=== PATIENT | male | born 2000 | race Caucasian/White ===

== ENCOUNTER 2025-06-21 20:09 | Emergency (ER) | payer OTHER, SELFPAY ==
--- NOTE | ~2025-06-21 | XR_ITS ---
CLINICAL HISTORY: pain after snapping sound while running 3 view right ankle Comparison: None provided Findings: Small nonspecific curvilinear density identified along the medial margin of the lateral malleolus on the oblique image. Ankle mortise intact. Small to moderate posterior calcaneal enthesophyte at the site of the Achilles tendon insertion. Small plantar calcaneal spur. No significant arthritic change or erosions. Possible right ankle effusion. Evaluation is limited on the lateral image by suboptimal patient positioning. No radiopaque foreign body. IMPRESSION: 1. Small curvilinear density identified along the medial margin of the lateral malleolus of the right ankle on the oblique image. This may represent a projectional finding or a subtle fracture. Recommend clinical correlation with any focal point tenderness at this site for further evaluation. 2. Probable right ankle effusion. This document has been electronically signed by: Scar Devlin MD on 06/21/2025 21:22:58
[2025-06-21 20:21] VITALS: BP 152/82; PULSE 103; RESP 18; TEMP 36.7; O2SAT 97; BMI 31.6
--- OUTSIDE RECORDS SUMMARY | 2025-06-21 22:30 | XMS_ITS | Clinical Summary ---
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 Name Role Phone Unavailable Primary Care Provider Unavailabl e Immunizations Immunization Administration Dates Next Due DTaP 5 02/24/2002, 0,1998,07/04,1998 HPV Vaccine 9 Valent 04/02/2015 HPV, Quadrivalent 11/09/2013,09/20/2013 Hep A, ped/adol 07/23/2016,04/02/2015 Hep B, ped/adol 1998,1998,1998 Hib (PRP-T) 07/23/1999, 9,1998,04/18 IPV 02/24/2002 Influenza, injectable, MDCK, preservative free, quadrivalent 07/23/2016 MMR 02/24/2002,04/04/1999 Meningococcal Conj (Menactra) MCV4P 04/02/2015,0 10/01/2009 OPV 04/04/1999,1998,1998 Tdap 10/01/2009 Varicella 10/01/2009,04/04/1999 Family History Relation Name Status Comments Brother Alive Brother: Alive and well Father Alive Father: Alive a nd well Maternal Grandfather Materna l grandfather: Cancer -lung, ETOH abuse, Maternal Grandmother Alive Materna l aunt: Anxiety, agraphobia Mother Mother: Depress ion, elevated cholesteral, Hyperlipidemia Other , Family histor y of Alcoholism, No family history of *Sudden /VA under 55, No family history of *Heart Disease, No family history of *Dental caries, No family history of *CVA/Stroke Paternal Grandfather Paterna l grandfather: , Cancer -colon Sister Alive Sister: Alive a nd well Social History Tobacco Use Types Packs/Day Years Used Date Smoking Tobacco: Never Comments:Never smoker Sex and Gender Information Value Date Recorded Sex Assigned at Not on file Legal Sex Male 4:52 PM EDT Gender Identity Not on file Sexual Orientation Not on file Last Filed Vital Signs Vital Sign Reading Time Taken Comments Blood Pressure 121/80 07/23/2016 12:00 AM EST Pulse 81 07/23/2016 12:00 AM EST Temperature 36.1 C (96.9 F) 12/06/2013 12:00 AM EDT Respiratory Rate - - Oxygen Saturation - - Inhaled Oxygen Concentration - - Weight 83 kg (183 lb) 07/23/2016 12:00 AM EST Height 175.3 cm (5' 9 ) 04/02/2015 12:00 AM EDT Body Mass Index - - Plan of Treatment Health Maintenance Due Date Last Done Comments DTaP,Tdap,and Td Vaccines (7 - Td or Tdap) 10/02/2019 10/01/2009, 02/24/2002, 09/19/1999, Additional history exists Influenza Vaccines (#1) 2025 07/23/2016 COVID-19 Vaccine ( season) 2025 Hepatitis B Vaccines Completed 1998, 1998, 1998 HIB Vaccines Completed 07/23/1999, 08/20, 1998, Additional history exists IPV Vaccines Completed 02/24/2002, 03/19, 1998, Additional history exists MMR Vaccines Completed 02/24/2002, 04/04/1999 Varicella Vaccines Completed 10/01/2009, 04/04/1999 HPV Vaccines Completed 04/02/2015, 10/18, 09/20/2013 Meningococcal Vaccine Completed 04/02/2015, 010 Hepatitis A Vaccines Completed 07/23/2016, 04/02/20 15 Men B Vaccine Aged Out No longer celia andrews based on patient's age to complete this topic Pneumococcal Vaccine Aged Out No long er eligible based on patient's age to complete this topic
--- OUTSIDE RECORDS SUMMARY | 2025-06-21 22:30 | XMS_ITS | Encounter Summary ---
Author Organization [facility] Address [address] [place] [id number] Phone Care Team Providers Care Laborer Road Name Role Phone Bruna Dean MD Primary Care Provider [phone] Encounter Details Date Type Department Care Team (Late st Contact Info) Description 03/04/2017 Conversion Encounter [facility] - [address] [id number] Social History Tobacco Use Types Packs/Day Years Used Date Smoking Tobacco: Never Comments:Never smoker Sex and Gender Information Value Date Recorded Sex Assigned at Not on file Legal Sex Male 4:52 PM EDT Gender Identity Not on file Sexual Orientation Not on file documented as of this encounter Plan of Treatment Not on file documented as of this encounter Visit Diagnoses Not on filedocumented in this encounter Care Teams Laborer Road Relationship Specialty Start Date End Date Bruna Dean MD [address] [place] [id number] PCP - General 02/26/17 10/18/22 documented as of this encounter
--- NOTE | 2025-06-21 23:22 | ED.LOWEXIN ---
HPI - Extremity Injury (Lower) General Chief Complaint: Extremity Injury, Lower Stated Complaint: Knee Leg Pain Time Seen by Provider: 06/21/25 22:35 Source: patient Mode of arrival: ambulatory Limitations: no limitations History of Present Illness ED Provider: Dr. Dinorah Stockton HPI Narrative: Patient comes to the emergency room complaining of right lower extremity pain. According to the patient, earlier today he went out for a run, states that he landed hard on his foot and heard loud snapping noise coming from his ankle area. Patient states that initially, he was able to bear some weight with pain, but shortly after, he was not able to bear any weight at all. Patient denies any other injuries. Related Data Previous Rx's ?Medication ?Instructions ?Recorded acetaminophen 500 mg tablet 500 mg PO Q6H PRN fever or pain 06/21/25 #30 tabs ketorolac 10 mg tablet 10 mg PO Q8H PRN pain #15 tabs 06/21/25 sumatriptan succinate 50 mg tablet See Rx Instructions PO .COMPLEX 06/21/25 #10 tabs Allergies Allergy/AdvReac Type Severity Reaction Status Date / Time No Known Allergies Allergy Verified 06/21/25 20:23 Review of Systems Review of Systems: Constitutional : No Weight loss, No Fever, No Chills, No Night Sweats, No Fatigue, No Malaise ENT/Mouth : No Hearing loss, No Ear Pain, No Nasal Congestion, No Sinus Pain, No Hoarseness, No sore throat, No Rhinorrhea, No Swallowing Difficulty Eyes: No Eye Pain, No Swelling, No Redness, No Foreign Body, No Discharge, No Vision Changes Cardiovascular : No Chest Pain, No SOB, No Dyspnea on Exertion, No Orthopnea, No Edema, No Palpitations Respiratory : No Cough, No Sputum, No Wheezing, No Smoke Exposure, No Dyspnea Gastrointestinal : No Nausea, No Vomiting, No Diarrhea, No Constipation, No abdominal Pain, No Hematochezia, No Melena Genitourinary : no irregular bleeding, No Dysuria, No Urinary Frequency, No Hematuria, No Urinary Incontinence, No Urgency, No Flank Pain, No Urinary Flow Changes, No Hesitancy Musculoskeletal : Complaining of right ankle pain No Myalgias, No Joint Swelling Skin : No Skin Lesions, No rash Neuro : No Weakness, No Numbness, No Paresthesias, No Loss of Consciousness, No Dizziness, No Headache Psych : No Anxiety/Panic, No Depression, No SI/HI/AH/VH, No Social Issues, Heme/Lymph: No Bruising, No Bleeding,No Lymphadenopathy Endocrine : No Polyuria, No Polydipsia, No Temperature Intolerance [facility] Social History Social History Advance Directives: No Advance Directives Information Provided: No Do you have a plan to hurt others: No Plan Physical Exam Exam: Exam: Appearance: Alert. Oriented X3. No acute distress. Eyes: Pupils equal, round and reactive to light. ENT: Pharynx normal. Neck: Normal inspection. Neck supple. No lymph nodes noted. No crepitus CVS: Normal heart rate and rhythm. Pulses normal. Normal S1 and S2 Respiratory: No respiratory distress. Breath sounds normal. No Wheezing. No rales Abdomen: Soft and nontender. No rigidity. No distention. Skin: Skin warm and dry. Normal skin color. Normal skin turgor. Extremities: No lower extremity edema. No Lacerations. No Rash patient has no significant pain to palpation over the lateral or medial malleolus. However, patient has weakness on plantar flexion on the right side and a positive Mcguire test Neuro: Oriented X 3. No motor deficit. No sensory deficit. Moving all extremities. No slurred speech. CN 2 through 12 grossly intact Psych: calm, cooperative, normal affect Vital Signs: Vital Signs: Last Vital Signs Temp 98.1 F 06/21/25 20:21 Pulse 103 H 06/21/25 20:21 Resp 18 06/21/25 20:21 BP 152/82 H 06/21/25 20:21 Pulse Ox 97 06/21/25 20:21 O2 Del Method Room Air 06/21/25 20:21 BMI result Body Mass Index 31.6 Medications Administered Discontinued Medications Generic Name Dose Route Start Last Admin Trade Name Freq PRN Reason Stop Dose Admin Ketorolac Tromethamine 60 mg 06/21/25 22:55 06/21/25 23:00 Ketorolac Tromethamine 60 Mg/2 Ml Vial IM 06/21/25 22:56 60 mg ONCE ONE Administration Medical Decision Making Medical Decision Making [facility] Narrative: The x-rays of the ankle showed a possible lateral malleolus density. Patient may have subtle fracture. However, patient does not have any pain over the lateral or medial malleolus. Patient has a positive Mcguire test and has weakness to plantar flexion on the right side. I discussed the physical exam with the patient, patient likely has an Achilles tendon injury. Patient's foot was placed on a splint and he was provided with crutches. When dose of IM ketorolac was given I discussed with the patient that he needs to follow-up with Orthopedics A referral has been placed. 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 Work note has been provided for the patient Differential Diagnosis Differential Diagnoses: The differential diagnosis associated with the presentation includes (Achilles tendon injury/rupture, malleolus injury, ankle sprain) Independent Interpretation I performed an independent interpretation of an: Plain X-Ray Radiology Impression Discussion of test interpretation with radiology: I have reviewed the radiologist's reading. Radiologist Impression: Findings: Small nonspecific curvilinear density identified along the medial margin of the lateral malleolus on the oblique image. Ankle mortise intact. Small to moderate posterior calcaneal enthesophyte at the site of the Achilles tendon insertion. Small plantar calcaneal spur. No significant arthritic change or erosions. Possible right ankle effusion. Evaluation is limited on the lateral image by suboptimal patient positioning. No radiopaque foreign body. IMPRESSION: 1. Small curvilinear density identified along the medial margin of the lateral malleolus of the right ankle on the oblique image. This may represent a projectional finding or a subtle fracture. Recommend clinical correlation with any focal point tenderness at this site for further evaluation. 2. Probable right ankle effusion. Procedures Orthopedic Splinting/Casting Injury #1: Side: right Lower Extremity Injury Location: lower leg and ankle Lower Extremity Immobilizer: posterior splint Other Orthopedic Equipment: crutches Discharge Plan Discharge Clinical Impression: Achilles tendon injury Patient Disposition: Home, Self-Care Instructions: Crutch Instructions (ED), Achilles Tendon Rupture (ED) Additional Instructions: Do not bear weight on your injured leg/foot. Please follow-up with your primary care physician tomorrow. If you have any worsening or new symptoms, please return to the emergency room or call 911 Please be very careful using your crutches, it is icy outside. Ketorolac may also work for migraine headaches. However, if you have breakthrough pain, you may use acetaminophen for generalized pain. Sumatriptan maybe used, but this medication is specific for migraine headaches Prescriptions: New ketorolac 10 mg tablet 10 mg PO Q8H PRN (Reason: pain) Qty: 15 0RF Rx Instructions: maximum total duration of 5 days from all oral, intranasal, or parenteral formulations sumatriptan succinate 50 mg tablet See Rx Instructions .ROUTE .COMPLEX Qty: 10 0RF Rx Instructions: take 1 tab at onset of headache; if no relief may repeat 1 tab after at least 2 hrs; max = 4 tabs/24 hr acetaminophen 500 mg tablet 500 mg PO Q6H PRN (Reason: fever or pain) Qty: 30 0RF Referrals: Saw Head PA [Physician Private Equity Analyst, Hand Surgery] Referral Note: Likely Achilles tendon rupture. 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
[2025-06-21 23:37] VITALS: BP 144/89; PULSE 92; RESP 18; TEMP 36.6; O2SAT 97
== END 2025-06-22 00:14 | disposition home or self-care (01) ==
PROVIDERS: Emergency Provider Emergency Medicine
DX: S86.001A Unspecified injury of right Achilles tendon, initial encounter (principal); Y93.02 Activity, running; Y93.L9 Activity, other outdoor activity; Y92.9 Unspecified place or not applicable
CPT/HCPCS: 73610; 96372; 99283; 99284; J1885

== ENCOUNTER → 2025-06-21 20:38 | Outpatient (BNV) | payer SELFPAY | PROVIDERS: Visit Provider Radiology Diagnostic Radiology | DX: M85.871 Other specified disorders of bone density and structure, right ankle and foot (principal) | CPT/HCPCS: 73610 ==

== ENCOUNTER 2025-06-25 10:37 | Outpatient (AMB) | payer OTHER, SELFPAY ==
--- NOTE | 2025-06-25 10:43 | MHC.OFFVIS ---
Vital Signs 06/25/25 10:48 Height 5 ft 10 in Weight 220 lb BMI 31.6 Intake Visit Reasons: ED FU: Right Achilles Tendon Rupture Intake Note: Eric is a 25 year old male who presents today as a new patient for an emergency department follow up for his right foot injury, DOI: 06/21/25. Patient went to [facility] ED same day of his injury expresses he went out for a run and landed hard on the right foot and heard loud snapping noise coming from his ankle area. He says initially he was able to bear some weight with pain however shortly after, he was not able to bear any weight at all. Today he expresses he is still unable to bear wear. He was placed in a splint and crutches at the ED. He was prescribed pain medication however says it has not helped. 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 He says he has a compression sleeve for the slight, says he needs an MRI done for his right foot because his doctor in [place] says he may need surgery. Accompanied by: Spouse Allergies No Known Allergies Allergy (Verified 06/25/25 10:48) HPI HPI ED FU: Right Achilles Tendon Rupture: Details: Mr. Davies is a 25-year old male who presents to the office today for evaluation of a right Achilles tendon rupture that occurred on 06/23/2025. Patient states that he was running and he came down hard on his right foot/ankle. He felt immediate pain and initially was able to weightbear but over time was unable to due to pain. He was seen in the emergency department where he was diagnosed with a right Achilles tendon rupture placed into a posterior splint and instructed to follow up with orthopedics outpatient for further evaluation and treatment. 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 Patient assures me that he has a surgeon established in [facility]. [facility] Social History Unable to assess alcohol history related to: Unable to respond Patient Tobacco Use Status: Never used Tobacco service: Yes Current occupational status: employed Current occupation: [employer] Review of Systems Const All systems reviewed & are unremarkable except as noted in HPI and below Physical Exam Vital Signs: BMI result Body Mass Index 31.6 Const General: cooperative, healthy appearing and no acute distress Resp Effort & Inspection: normal respiratory effort and able to speak in complete sentences Extrem Other: Right ankle: Moderate circumferential edema at the ankle. Tenderness to palpation along the Achilles tendon. Palpable defect at the Achilles tendon attachment. Positive Mcguire's test. Sensation is reportedly intact. Capillary refill is brisk. Psych Appearance: grossly normal Mental Status: mental status grossly normal Attitude: cooperative Assessment & Plan Assessment & Plan (1) Rupture of right Achilles tendon: Code(s): S86.011A - Strain of right Achilles tendon, initial encounter Category: Medical Plan Mr. Davies is a 25-year old male who presents to the office today for evaluation of a right Achilles tendon rupture that occurred on 06/23/2025. Patient states that he was running and he came down hard on his right foot/ankle. He felt immediate pain and initially was able to weightbear but over time was unable to due to pain. He was seen in the emergency department where he was diagnosed with a right Achilles tendon rupture placed into a posterior splint and instructed to follow up with orthopedics outpatient for further evaluation and treatment. 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 Patient assures me that he has a surgeon established in [place]. While in the office today, I educated the patient on his condition and that surgical intervention if he should choose to move forward with should be performed within 1 week from the injury. This is important to note as the patient is planning to deploy to [place] tomorrow. He is looking for a stat MRI to be obtained in which we have placed an order and the patient will have this performed at [facility] as [facility] is unable to accommodate him today. I educated the patient on potential swelling concerns associated with flying. I recommended that he try to elevate the right lower extremity as much as possible during the flight. He will follow up with an orthopedic surgeon in [place] once he has arrived. Patient demonstrates understanding and accepts. Coding Level of Care Code New Pt Level 4 (81878) Diagnoses Rupture of right Achilles tendon S86.011A
[2025-06-25 10:48] VITALS: BMI 31.6
== END 2025-06-25 12:03 | disposition home or self-care (01) ==
LOC: HO.HOS 10:37
PROVIDERS: Visit Provider Physician Assistant
DX: S86.011A Strain of right Achilles tendon, initial encounter (principal)
CPT/HCPCS: 99204

== ENCOUNTER → 2025-06-25 10:37 | Outpatient (BNVA) | payer OTHER, SELFPAY | PROVIDERS: Visit Provider Physician Assistant | DX: S86.011D Strain of right Achilles tendon, subsequent encounter (principal); X58.XXXD Exposure to other specified factors, subsequent encounter | CPT/HCPCS: 99202 ==